=== PATIENT | male | born 1940 | race Caucasian/White ===

== ENCOUNTER 2018-11-24 09:54 | Inpatient (IN) ==
--- NOTE | 2018-11-06 22:05 | History and Physical Report ---
DATE OF ADMISSION: CHIEF COMPLAINT: Left knee pain and discomfort. HISTORY OF PRESENT ILLNESS: The patient is a 77-year-old gentleman who is well known to me from a previous right knee replacement done in 03/2005. He has done pretty well from this side. Over the years, he has developed increased pain and discomfort in his left knee. We have been putting 3 or 4 shots in his knee every year for the past several years. This became less successful over time. They helped him for about 3-4 weeks and that is about it. For the remaining 2 months, he is pretty painful. His pain is mostly medial, but some global pain. The more he walks, the more it hurts. He has nighttime pain. He would like to proceed with surgical treatment. PAST MEDICAL HISTORY: 1. Unspecified heart disease. 2. Hypertension. 3. Elevated cholesterol. 4. Low back pain/sciatica. 5. Mild obesity with BMI 32. PAST SURGICAL HISTORY: Includes right knee replacement done in 03/2005. ALLERGIES: None. CURRENT MEDICINES: 1. Lisinopril. 2. Baby aspirin. 3. Cymbalta. 4. Prilosec. 5. Pravastatin. 6. Losartan. 7. Metoprolol. SOCIAL HISTORY: This patient is a 77-year-old male. He is . He is from [place]. Does not smoke. FAMILY HISTORY: Noncontributory. REVIEW OF SYSTEMS: Negative for diabetes, neurologic problems, vascular problems or bleeding disorders. No history of deep venous thrombosis or pulmonary embolism. He does get nauseated with surgery. PHYSICAL EXAMINATION: GENERAL: Reveals a healthy, pleasant middle-aged male. Looks to be in pretty good health. HEENT: Benign. NECK: Supple. No lymphadenopathy. LUNGS: Clear to auscultation. HEART: Regular rate and rhythm. ABDOMEN: Soft, nontender and nondistended. EXTREMITIES: Grossly neurovascularly intact except as follows. Examination of the left knee reveals the patient ambulates with a bit of a limp. He has got varus alignment to his knee with a little bit of varus thrust. He has got bony hypertrophy medially. He is tender over the medial joint line. Range of motion is 10 degrees short of full extension and 125 degrees of flexion. No instability. No pain with hip motion. X-RAYS: X-rays of the left knee reviewed which showed advanced left knee DJD. He has got complete loss of his medial joint space. He has got tibial femoral subluxation. ASSESSMENT: This patient is a 77-year-old gentleman 14 years out from right knee replacement with advanced left knee degenerative joint disease. He has failed conservative treatment and would like to proceed with surgical treatment. PLAN: We are going to proceed with left knee replacement. The risks and benefits of left knee replacement were explained to the patient including but not limited to deep venous thrombosis, pulmonary embolism, , infection, neurological injury, vascular injury, bleeding problem, pain, limited range of motion, stiffness, failure to relieve symptoms, incomplete relief of symptoms, need for further surgery in the future, fracture, leg length inequality, nerve palsy, etc. The patient understands and desires to proceed. Informed consent was obtained. He did get a lot of nausea after his last surgery. We will likely discharge him with some Zofran. We will try and limit the narcotics and stick to Tylenol and tramadol for pain if possible. As far as discharge plans, he is planned to be discharged home using [facility] home health program. His can assist in his care.
--- NOTE | 2018-11-07 16:09 | PAT Medication Instructions ---
Medication Instructions Date of Service November 07, 2018 Home Medications aspirin [Aspir-81] 81 mg PO DAILY cholecalciferol (vitamin D3) 1,000 unit PO DAILY duloxetine 60 mg PO QPM loratadine 10 mg PO DAILY losartan 12.5 mg PO HS metoprolol succinate 12.5 mg PO HS metoprolol succinate 25 mg PO QAM omeprazole magnesium [Prilosec OTC] 20 mg PO QAM rosuvastatin [Crestor] 10 mg PO HS tamsulosin 0.4 mg PO QPM DO NOT take the morning of surgery cholecalciferol (vitamin D3) 1,000 unit PO DAILY loratadine 10 mg PO DAILY Take morning of surgery With a small sip of water, OTHERWISE NOTHING TO EAT OR DRINK AFTER MIDNIGHT: aspirin [Aspir-81] 81 mg PO QAM metoprolol succinate 25 mg PO QAM omeprazole magnesium [Prilosec OTC] 20 mg PO QAM Take evening before surgery duloxetine 60 mg PO QPM losartan 12.5 mg PO HS metoprolol succinate 12.5 mg PO HS rosuvastatin [Crestor] 10 mg PO HS tamsulosin 0.4 mg PO QPM Other Notes If you have any questions please call us at [phone] or [phone] or [phone] or [phone]
--- NOTE | 2018-11-08 12:00 | Anesthesiology Consultation ---
Date of Service November 08, 2018 Assessment & Plan (1) Encounter for pre-operative examination: Cardiac clearance 11/10/2018: Jarvis has a history of nonischemic cardiomyopathy which is improved on medical therapy. EF is now normal as per his echocardiogram last year. He describes an exercise capacity in the range of 4 metabolic equivalents are higher without any symptoms and therefore should be considered low risk for coronary ischemia for the upcoming surgery. His fairly recent catheterization showed only mild plaque. His EF has improved. I would recommend that he take his beta-waqas the morning of surgery and a postoperative EKG should be checked. Chart Review Chart Review: Acceptable Risk for Surgery and Patient seen in Pre Admission Testing Teaching & Discussion Instructed NPO after midnight before surgery, except medications with 15 cc of water. Medication instructions provided according to the PAT guidelines. History Surgery Operation Date: 11/24/18 10:40 Proposed Procedures p Left Total Knee Replacement - Dae Stevens MD Height/Weight Height: 6 ft 2 in Weight: 116.4 kg Allergies Allergy/AdvReac Type Severity Reaction Status Date / Time hydrocortisone Allergy Unknown CORTISONE Verified 11/01/18 10:41 INJ GAVE RED FACE;HIVES Medications Home Medications Medication Instructions Recorded Confirmed Last Taken aspirin [Aspir-81] 81 mg PO DAILY 11/01/18 11/01/18 Unknown cholecalciferol (vitamin D3) 1,000 unit PO DAILY 11/01/18 11/01/18 10/31/18 [Vitamin D3] duloxetine 60 mg PO QPM 11/01/18 11/01/18 10/31/18 loratadine 10 mg PO DAILY 11/01/18 11/01/18 Unknown losartan 12.5 mg PO HS 11/01/18 11/01/18 10/31/18 metoprolol succinate 12.5 mg PO HS 11/01/18 11/01/18 10/31/18 metoprolol succinate 25 mg PO QAM 11/01/18 11/01/18 11/01/18 omeprazole magnesium [Prilosec OTC] 20 mg PO QAM 11/01/18 11/01/18 11/01/18 rosuvastatin [Crestor] 10 mg PO HS 11/01/18 11/01/18 10/31/18 tamsulosin 0.4 mg PO QPM 11/01/18 11/01/18 10/31/18 Past Medical History Medical History Acid reflux Back problem Spinal stenosis? 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 Prediabetes A1C 6.3% 10/2018 Past Surgical History Surgical History History of cardiac cath 2014. Done for dyspnea and abnormal stress test. Showed minimal nonobstructive CAD, mild-mod LV dysfunction (EF 35-40%). History of colonoscopy History of hernia surgery History of tonsillectomy History of total right knee replacement Hx of rotator cuff surgery ? SIDE Status post debridement of bone spur BOTH HEELS 25 YRS AGO Past Anesthesia History No Family Hx of Anesthesia Complications and Other Pt reports delirium post op with hernia repair 2 years ago. Otherwise no issues known. History of PONV No Motion Sickness Screening History of Motion Sickness: Yes Social History Smoking Status: Never smoker Do You Dip or Chew Tobacco: No Hx Alcohol Use: No Hx Substance Use: No substance use type: does not use Exercise / Class Metabolic Activity III < 4 Walking/Shop/Light housework (Denies any CP, some mild SOB with stairs possible but avoids stairs 2/2 knee pain. Works as a ivy.) Review of Systems Pt denies any recent chest pain, shortness of breath, palpitations, cough, fever or URI. Physical Exam Vital Signs BP: 119/80 P: 70bpm SPO2: 95% RA T: 98.3 R: 16 ENMT Mouth: + dentures and + edentulous Thyromental Distance: < 3.5 Finger Breadths (3) Mallampati Class: II Neck normal visual inspection and + limited neck extension Respiratory normal respiratory effort Auscultation: lungs clear to auscultation bilaterally Cardiovascular Rate/Rhythm: regular rate and regular rhythm Heart Sounds: no murmur Vessels: no carotid bruit Extremities: no edema Testing Electrocardiogram Date: 11/08/18 Findings: + NSR @ (65) Nonspecific ST abnormality. Echocardiogram Date: 03/18/17 EF: 55% Mild concentric LVH. Left ventricular systolic function is normal. Right ventricular systolic pressure is measured at 33 mmHg. Mild aortic root dilation of 3.8 cm. Grade 1 diastolic dysfunction. Laboratory Results 11/08/18 12:30 11/08/18 12:30 Blood Type A Positive 11/08/18 12:30 Antibody Screen NEGATIVE 11/08/18 12:30 PT 10.5 Seconds (9.0-12.0) 11/08/18 12:30 INR 1.0 (0.9-1.1) 11/08/18 12:30 APTT 28.0 Seconds (21.0-31.0) 11/08/18 12:30 A1C 10/31/18: 6.3%
[2018-11-08 13:11] LABS: Basophils # (auto) 0.04 K/uL (0-0.2); Basophils % (auto) 0.7 %; Eosinophils # (auto) 0.16 K/uL (0-0.5); Eosinophils % (auto) 2.8 %; Hematocrit (blood only) 44.8 % (42-52); Hemoglobin 15.4 g/dL (14.0-18.0); Immature Granulocytes # (auto) 0.02 K/uL (0.00-0.02); Immature Granulocytes % (auto) 0.4 %; Lymphocytes # (auto) 2.07 K/uL (1.2-3.4); Lymphocytes % (auto) 36.4 %; Mean Corpuscular Hgb Conc 34.4 g/dL (32-36); Mean Corpuscular Volume 89.8 fL (80-100); Mean Platelet Volume 9.5 fL (7.4-10.4); Monocytes # (auto) 0.59 K/uL (0.11-0.59); Monocytes % (auto) 10.4 %; Neutrophils # (auto) 2.81 K/uL (1.4-6.5); Neutrophils % (auto) 49.3 %; Platelet Count 209 K/uL (130-400); RDW Coefficient of Variation 13.5 % (11.5-14.5); RDW Standard Deviation 44.3 fL (36.4-46.3); Red Blood Count 4.99 M/uL (4.7-6.1); White Blood Count 5.69 K/uL (4.8-10.8)
[2018-11-08 13:24] LABS: Prothrombin Time 10.5 Seconds (9.0-12.0)
[2018-11-08 14:33] LABS: BUN Creatinine Ratio 16.6 (10-20); Blood Urea Nitrogen 18 mg/dl (7-18); C Reactive Protein < 0.29 mg/dl (0-0.29); Calcium 9.2 mg/dl (8.5-10.1); Carbon Dioxide 25 mmol/L (21-32); Chloride 107 mmol/L (98-107); Creatinine Clr Calc Pharmacy 80.9 ml/min; Est GFR (African American) 78.3; Est GFR (Non-African American) 67.5; Glucose 75 mg/dl (70-99); Potassium 4.2 mmol/L (3.5-5.1); Sodium 139 mmol/L (136-145)
[~2018-11-24 09:54] MED LIST: ACETAMINOPHEN 500 MG TAB PO SCH; BUPIVACAINE 0.5 % 5 MG/1 ML PF 10ML VIAL ONE; BUPIVACAINE LIPOSOME/PF 266 MG, BUPIVACAINE/EPINEPHRINE 50 ML, SODIUM CHLORIDE 0.9% 30 ... INFIL SCH; CEFAZOLIN 2000MG 2,000 MG/15 ML SYR IV SCH; EPINEPHrine INJ 1 MG/ML AMP ONE; FAMOTIDINE 20 MG TAB PO SCH; GABAPENTIN 300 MG PO SCH; LR 15ML/HR IV SCH; METOCLOPRAMIDE HCL 10 MG TABLET PO SCH; ROPIVACAINE 0.5% 5 MG/ML 30 ML VIAL ONE; TRANEXAMIC ACID 1,000 MG **IV Intra-op IV SCH
--- NOTE | 2018-11-24 10:39 | History & Physical Bridge Note ---
Date of Service November 24, 2018 History & Physical Bridge Note I have examined the patient, reviewed the History & Physical and in the interval since the performance of the History & Physical I have noted the following changes of clinical significance: no changes noted
[2018-11-24] MEDS: LR 500ML BOLUS, THEN 15ML/HR IV SCH (11:05)
[2018-11-24] MEDS ORDERED: MIDAZOLAM HCL 1 MG/ML 2ML VIAL ONE (12:01)
[2018-11-24] MEDS ORDERED: fentaNYL citrate 100 MCG/2 ML VIAL ONE (12:01)
[2018-11-24] MEDS ORDERED: PROPOFOL IV EMULSION 10 MG/ML 20 ML VIAL IV ONE ×2 (12:04→14:10)
[2018-11-24] MEDS ORDERED: ATROPINE SULFATE 0.1 MG/ML 10ML SYR IV PRN (12:15)
[2018-11-24] MEDS ORDERED: LABETALOL HCL IV 5 MG/ML 20ML IV PRN (12:15)
[2018-11-24] MEDS ORDERED: ePHEDrine sulfate 50 MG/ML AMP IV PRN (12:15)
[2018-11-24] MEDS ORDERED: fentaNYL citrate 100 MCG/2 ML VIAL IV PRN (12:15)
[2018-11-24] MEDS ORDERED: HYDROmorphone INJ 1 MG/ML SYRINGE IV PRN (12:15)
[2018-11-24] MEDS ORDERED: ONDANSETRON INJ 2 MG/ML 2 ML VIAL IV PRN ×2 (12:15→16:14)
[2018-11-24] MEDS ORDERED: PHENYLEPHRINE 100MCG/ML 5ML SYR IV PRN (12:15)
[2018-11-24] MEDS ORDERED: MEPERIDINE HCL 25 MG/ML CARP IV PRN (12:15)
[2018-11-24] MEDS ORDERED: BUPIVACAINE 0.25% 30 ML VIAL ONE (12:28)
[2018-11-24] MEDS ORDERED: BUPIVACAINE LIPOSOME 1.3% 266 MG/20 ML VIAL ONE (12:29)
[2018-11-24] MEDS ORDERED: BACITRACIN INJ 50,000 UNIT VIAL ONE (12:29)
[2018-11-24] MEDS ORDERED: SODIUM CHLORIDE 0.9% PF 50 ML VIAL ONE (12:29)
[2018-11-24] MEDS ORDERED: EpINEphrine HCL INJ 1 MG/ML 1ML SYRINGE ONE (12:30)
--- NOTE | 2018-11-24 14:35 | Post Operative Brief Note ---
Immediate Post Op Note v1 Date of Surgery November 24, 2018 Pre & Post Diagnosis Operation Date: 11/24/18 12:30 Pre-Op Diagnosis: Advanced Left knee Degenerative Joint Disease Post-Op Diagnosis: Advanced Left knee Degenerative Joint Disease Procedure Operation Date: 11/24/18 12:30 <No data on this case meets the specified criteria> Surgeon Dae Stevens MD Human Resources Intern Misti, PAC Estimated Blood Loss 50 Findings Consistent with Post-Op Diagnosis Fluids 1700 cc Specimens Left Knee Drains Dixon Catheter Anesthesia Type Spinal Complications none Disposition Accompanied Patient To Recovery: No Disposition: Recovery Room
--- NOTE | 2018-11-24 15:27 | XRay Report ---
XR knee LT 2V routine CLINICAL HISTORY: 77 years-old Male presenting with Surgical Post Op. TECHNIQUE: Frontal and crosstable lateral views of the left knee were obtained. COMPARISON: 11/05/2018. FINDINGS: Postsurgical changes of total left knee arthroplasty with patellar resurfacing. Expected intra-articu lar and soft tissue emphysema. No malalignment. No para prosthetic fracture. Overlying skin jn n oted. Suspected underlying osteopenia. IMPRESSION: Expected postsurgical appearance status post total left knee arthroplasty with patellar resurfacing. Electronically signed by: Kimani Lema M.D. 11/24/2018 3:26 PM
--- NOTE | 2018-11-24 15:30 | Anesthesiology Progress Note ---
Date of Service November 24, 2018 Anesthesia Post Procedure Vital Signs Vital Signs: Temp Pulse Pulse Resp BP Pulse Ox 11/24/18 15:20 36.5 C 83 13 119/66 98 11/24/18 15:10 82 12 107/65 99 11/24/18 15:00 80 11 L 108/65 100 11/24/18 14:50 80 13 101/67 100 11/24/18 14:41 36.5 C 83 20 91/61 L 98 11/24/18 10:39 36.6 C 66 18 136/91 95 Pain Intensity Left Knee: Pain Intensity: 0 Notes Mental Status: alert / awake / arousable Patient Amnestic to Procedure: Yes Nausea / Vomiting: adequately controlled Pain: adequately controlled Airway Patency, RR, SpO2: stable & adequate BP & HR: stable & adequate Neuraxial Anesthesia: was administered and sensory block is resolving Anesthetic Complications: no major complications apparent
[2018-11-24] MEDS ORDERED: TAMSULOSIN HCL 0.4 MG CAP PO PRN (16:14)
[2018-11-24] MEDS ORDERED: METOCLOPRAMIDE HCL INJ 5 MG/ML 2 ML VIAL IV PRN (16:14)
[2018-11-24] MEDS ORDERED: MAGNESIUM HYDROXIDE SUSP 30 ML UDC PO PRN (16:14)
[2018-11-24] MEDS ORDERED: HYDROmorphone INJ 0.5 MG/0.5 ML SYR IV PRN (16:14)
[2018-11-24] MEDS ORDERED: ALUMINUM/MAGNESIUM SUSP 30 ML UDC PO PRN (16:14)
[2018-11-24] MEDS ORDERED: NALOXONE HCL 0.4 MG/1 ML VIAL/CARP IV PRN (16:14)
[2018-11-24] MEDS ORDERED: BISACODYL 10 MG SUPP PR PRN (16:14)
[2018-11-24] MEDS: OXYCODONE HCL IR 5 MG TAB (IMMEDIATE RELEASE) PO PRN (17:54)
[2018-11-24] MEDS: KETOROLAC TROMETHAMINE 15 MG/ML VIAL IV SCH ×2 (18:51→23:51)
[2018-11-24] MEDS: FERROUS GLUCONATE 324 MG TAB PO SCH (18:51)
[2018-11-24] MEDS: ASCORBIC ACID 500 MG TAB PO SCH (18:51)
[2018-11-24] MEDS: SODIUM CHLORIDE 0.9% 1000ML 1,000 ML IV SCH (18:52)
[2018-11-24] MEDS ORDERED: TRANEXAMIC ACID 1,000 MG in 0.9 % SODIUM CHLORIDE 100 ML IV SCH (21:00)
[2018-11-24] MEDS: CEFAZOLIN 2000MG 2,000 MG/15 ML SYR IV SCH (21:02)
[2018-11-24] MEDS: SENNA 8.6 MG TAB PO SCH (21:14)
[2018-11-24] MEDS: DOCUSATE SODIUM 100 MG CAP PO SCH (21:14)
[2018-11-24] MEDS: TAPENTADOL HCL ER 50 MG TABCR PO SCH (21:15)
[2018-11-24] MEDS: ASPIRIN 81 MG ECTAB PO SCH (21:15)
[2018-11-24] MEDS: ROSUVASTATIN CALCIUM 10 MG TAB PO SCH (21:15)
[2018-11-24] MEDS: DULOXETINE HCL 60 MG CAP PO SCH (21:15)
[2018-11-24] MEDS: ACETAMINOPHEN 500 MG TAB PO SCH (21:15)
[2018-11-24] MEDS: LOSARTAN POTASSIUM 25 MG TAB PO SCH (21:15)
[2018-11-24] MEDS: TAMSULOSIN HCL 0.4 MG CAP PO SCH (21:15)
[2018-11-24] MEDS: METOPROLOL SUCC 25MG EXT REL TAB PO SCH (21:16)
[2018-11-25] MEDS: SODIUM CHLORIDE 0.9% 1000ML 1,000 ML IV SCH (01:52)
--- NOTE | 2018-11-25 02:43 | Operative Report ---
DATE OF OPERATION: 11/24/2018 SURGEON: Dae Stevens MD BOX FEEDER: LA Malagon PREOPERATIVE DIAGNOSIS: Left knee degenerative joint disease. POSTOPERATIVE DIAGNOSIS: Left knee degenerative joint disease. PROCEDURE PERFORMED: Left cemented posterior stabilized total knee arthroplasty. COMPLICATIONS: None. ESTIMATED BLOOD LOSS: 50 mL. FLUID REPLACEMENT: 1700 mL crystalloid fluid replacement. TOURNIQUET TIME: 62 minutes at 300 mmHg. ANESTHESIA: Spinal with adductor canal block. DRAINS: None. SPECIMENS: Left knee sent for pathology. OPERATIVE INDICATIONS: The patient is a 77-year-old gentleman who has had a long history of right knee arthritis. He underwent a right knee replacement 14 years ago and has done well from this. I have been treating him for the past 10 years for the left knee arthritis. We treated him with intermittent injections which just became less successful over the past year. X-rays show advanced DJD. He elected to proceed with surgical treatment. OPERATIVE FINDINGS: Operative findings were advanced left knee DJD. He had extensive grade 4 changes in the medial femoral condyle and medial tibial plateau as well as the pretty extensive patellofemoral disease. The lateral compartment showed grade 3 changes. He had a varus deformity to his knee with moderate size joint effusion. OPERATIVE IMPLANTS: Operative implants consisted of: 1. Biomet Vanguard size 67.5 left posterior stabilized femoral component. 2. Biomet size 79 tibial tray. 3. A 12 mm posterior stabilized polyethylene insert. 4. A 34 x 8.5 all poly patella. OPERATIVE PROCEDURE: The patient was taken to the operating room, identified and placed on the operating table in supine position. All contact areas were appropriately padded. IV antibiotics were provided by anesthesia team. A spinal anesthetic and adductor canal block had been provided in the holding area. Dixon catheter was placed in sterile fashion. Left thigh tourniquet was then placed and left lower extremity was then prepped and draped in usual sterile fashion. Left leg was elevated and exsanguinated with Esmarch and tourniquet was placed at 300 mmHg. An anterior approach to the left knee was then performed through a longitudinal incision centered over the patella. Sharp dissection was carried through the subcutaneous tissues down to the level of the extensor mechanism. A medial parapatellar arthrotomy incision was made. Some subperiosteal dissection was carried out medially. The fat pad was resected from beneath the patellar tendon. The lateral patellofemoral ligament was released. The patella was everted and knee was flexed. The osteophytes were taken off the distal femur. The ACL and PCL were then released and the distal femur and the tibia subluxated anteriorly. The external tibial alignment jig was then placed in the anterior face of the tibia and adjusted 16 mm medially. Proximal tibial cut was made to remove about a millimeter or 2 of bone from most deficient aspect of the medial tibial plateau. Some osteophytes were taken off medial and posteromedially. Tibia was sized to a size 79. Attention was then drawn to the femur. The distal femur was entered with a sharp drill bit. Intramedullary canal was suctioned. A left 6-degree valgus cutting guide was placed. Distal femoral cutting block was pinned in place. Distal femoral cut was made to take an additional 3 mm of bone off the distal femur. The femur was then sized to a size 67.5. We did downsize this slightly. The AP cutting block was pinned parallel to the epicondylar axis, which was 4 degrees of external rotation. The anterior cut, anterior chamfer, posterior cut, posterior chamfer cuts were made. Box cutting guide was placed and adjusted slightly lateral and the box cut was made. The knee was flexed. The remnants of the medial and lateral menisci were excised. The osteophytes were taken off the posterior aspect of the femur. A trial femoral component was placed. The tibial tray was pinned in maximum external rotation and the drill and stem punch were used to create defect in proximal tibia for the tibial tray. The knee was then trialed and the 12 mm insert fit most appropriately. Attention was then drawn to the patella. The patella was cleaned of all soft tissues. Patella thickness measured 24 mm in thickness, it was cut down to 14. It was sized to a size 34 patella. Lug holes were drilled for 34 patella. The lateral osteophyte was removed. Patella button was placed. Knee was taken through range of motion and the patella tracked nicely with no thumbs test. Attention was then drawn toward placement of permanent components. All trial components were removed. Bone plug was placed in the distal femur to limit blood loss. A double batch of Palacos G cement was mixed. A Biomet Vanguard size 67.5 left posterior stabilized femoral component, Biomet size 79 tibial tray, a 12 mm posterior stabilized polyethylene insert, and a 34 x 8.5 all poly patella then cemented in place. Knee was brought out into full extension until cement hardened. A final cement check was then performed. Pericapsular tissues were injected with a total of 100 mL of combination of 20 mL of Exparel, 30 mL of normal saline, 30 mL of 0.25% Marcaine with epinephrine. The patient did receive 1 gram of tranexamic acid. The tourniquet was then let down for final tourniquet time of 62 minutes. Hemostasis was assured using electrocautery. The extensor mechanism was then closed with a combination of #1 PDS suture and #1 Vicryl suture in a [id number] fashion. The extensor mechanism was checked and found to be intact. The subcutaneous tissues were then closed with 2-0 Dexon suture in a buried interrupted fashion. Skin was closed with skin jn. Leg was then cleaned and dried and a sterile dressing of Xeroform, 4 x 4s, sterile cast padding and Jayden bandage were applied. The patient then transferred to the recovery room in stable condition. The patient tolerated the procedure well with no complications. All needle and sponge counts were correct at the end of the operation. I attest to the content of the Intraoperative Record and any orders documented therein. Any exception s are noted below.
[2018-11-25] MEDS: ACETAMINOPHEN 500 MG TAB PO SCH ×3 (05:17→21:04)
[2018-11-25] MEDS: KETOROLAC TROMETHAMINE 15 MG/ML VIAL IV SCH ×4 (05:18→23:44)
[2018-11-25] MEDS: CEFAZOLIN 2000MG 2,000 MG/15 ML SYR IV SCH (05:19)
[2018-11-25] MEDS: LR 500ML BOLUS, THEN 15ML/HR IV SCH (05:20)
[2018-11-25 06:19] LABS: Hematocrit (blood only) 37.8 % (42-52); Hemoglobin 12.9 g/dL (14.0-18.0); Mean Corpuscular Hgb Conc 34.1 g/dL (32-36); Mean Corpuscular Volume 90.4 fL (80-100); Platelet Count 174 K/uL (130-400); RDW Coefficient of Variation 13.6 % (11.5-14.5); Red Blood Count 4.18 M/uL (4.7-6.1); White Blood Count 6.33 K/uL (4.8-10.8)
[2018-11-25 06:54] LABS: BUN Creatinine Ratio 15.1 (10-20); Calcium 7.6 mg/dl (8.5-10.1); Creatinine Clr Calc Pharmacy 71.5 ml/min; Est GFR (African American) 69.5; Potassium 3.9 mmol/L (3.5-5.1)
--- NOTE | 2018-11-25 08:26 | Progress Note ---
DATE: 11/25/2018 SUBJECTIVE: A 77-year-old gentleman postop day 1 from left knee replacement. He is doing well. Had a pretty good night. Pain is controlled. No chest pain or shortness of breath. Not feeling dizzy or lightheaded. OBJECTIVE: VITAL SIGNS: Temperature 37.0. Vital signs stable. PHYSICAL EXAMINATION: GENERAL: Reveals a pleasant, middle-aged male. I had to wake him this morning. LUNGS: Clear to auscultation. HEART: Has a regular rate and rhythm. ABDOMEN: Soft, nontender, nondistended. EXTREMITIES: Exam is grossly neurovascularly intact except as follows: Examination of the left lower extremity reveals the leg to be well aligned. Dressing is clean, dry, and intact. He can dorsiflex and plantarflex his foot appropriately. He has got brisk refill, good distal pulse. LABORATORIES: Hemoglobin 12.9, hematocrit 37.8. Electrolytes are stable. ASSESSMENT: A 77-year-old gentleman postoperative day 1 from left knee replacement, doing pretty well. Pain is controlled. He is neurologically intact. PLAN: 1. DVT prophylaxis including thigh-high TEDs, SCDs, and aspirin twice a day. 2. PT/OT. Weight bear as tolerated. Left total knee protocol. 3. Pain control, doing pretty well with current pain regimen. 4. Disposition: He is planning to be discharged to home with some home health once adequately recovered.
[2018-11-25] MEDS: LORATADINE 10 MG TAB PO SCH (09:28)
[2018-11-25] MEDS: PANTOprazole 40 MG TAB PO SCH (09:28)
[2018-11-25] MEDS: METOPROLOL SUCC 25MG EXT REL TAB PO SCH ×2 (09:28→21:06)
[2018-11-25] MEDS: DOCUSATE SODIUM 100 MG CAP PO SCH ×2 (09:28→21:04)
[2018-11-25] MEDS: MULTIVITAMIN TAB PO SCH (09:28)
[2018-11-25] MEDS: OXYCODONE HCL IR 5 MG TAB (IMMEDIATE RELEASE) PO PRN (09:29)
[2018-11-25] MEDS: ASCORBIC ACID 500 MG TAB PO SCH ×2 (09:29→17:48)
[2018-11-25] MEDS: FERROUS GLUCONATE 324 MG TAB PO SCH ×2 (09:29→17:48)
[2018-11-25] MEDS: ASPIRIN 81 MG ECTAB PO SCH ×2 (09:29→21:04)
--- NOTE | 2018-11-25 11:03 | Anesthesiology Progress Note ---
Date of Service November 25, 2018 Anesthesia Post Procedure Vital Signs Vital Signs: Temp Pulse Pulse Pulse Resp BP BP 11/25/18 09:20 66 85/56 L 11/25/18 09:15 69 101/68 11/25/18 09:14 62 104/63 11/25/18 08:30 65 77/42 L 11/25/18 08:00 36.7 C 63 16 118/72 11/25/18 04:05 37 C 68 18 109/67 11/24/18 23:15 37.1 C 75 18 106/68 11/24/18 20:58 59 L 113/68 11/24/18 19:12 36.5 C 70 20 120/73 11/24/18 17:44 36.6 C 69 20 116/74 11/24/18 17:02 36.8 C 80 20 143/81 H 11/24/18 16:30 36.8 C 78 20 115/75 11/24/18 15:45 85 11 L 100/66 11/24/18 15:30 85 12 105/64 11/24/18 15:20 36.5 C 83 13 119/66 11/24/18 15:10 82 12 107/65 11/24/18 15:00 80 11 L 108/65 11/24/18 14:50 80 13 101/67 11/24/18 14:41 36.5 C 83 20 91/61 L Pulse Ox 11/25/18 09:20 11/25/18 09:15 11/25/18 09:14 11/25/18 08:30 94 11/25/18 08:00 94 11/25/18 04:05 94 11/24/18 23:15 98 11/24/18 20:58 11/24/18 19:12 96 11/24/18 17:44 99 11/24/18 17:02 99 11/24/18 16:30 98 11/24/18 15:45 97 11/24/18 15:30 100 11/24/18 15:20 98 11/24/18 15:10 99 11/24/18 15:00 100 11/24/18 14:50 100 11/24/18 14:41 98 Pain Intensity Left Knee: Pain Intensity: 1 Notes Mental Status: alert / awake / arousable Nausea / Vomiting: adequately controlled Pain: adequately controlled Airway Patency, RR, SpO2: stable & adequate BP & HR: stable & adequate Hydration State: stable & adequate Neuraxial Anesthesia: was administered and sensory block resolved Anesthetic Complications: no major complications apparent and Pt Satisfied with anesthetic care
[2018-11-25] MEDS: CHOLECALCIFEROL 1,000 UNITS TAB PO SCH (11:13)
[2018-11-25] MEDS: TAPENTADOL HCL ER 50 MG TABCR PO SCH ×2 (11:13→21:08)
[2018-11-25] MEDS: LOSARTAN POTASSIUM 25 MG TAB PO SCH (21:03)
[2018-11-25] MEDS: TAMSULOSIN HCL 0.4 MG CAP PO SCH (21:03)
[2018-11-25] MEDS: ROSUVASTATIN CALCIUM 10 MG TAB PO SCH (21:04)
[2018-11-25] MEDS: SENNA 8.6 MG TAB PO SCH (21:04)
[2018-11-25] MEDS: DULOXETINE HCL 60 MG CAP PO SCH (21:04)
[2018-11-26] MEDS: KETOROLAC TROMETHAMINE 15 MG/ML VIAL IV SCH ×2 (05:12→11:39)
[2018-11-26] MEDS: ACETAMINOPHEN 500 MG TAB PO SCH (05:12)
[2018-11-26] MEDS: LR 500ML BOLUS, THEN 15ML/HR IV SCH (05:13)
--- NOTE | 2018-11-26 08:50 | Progress Note ---
DATE: 11/26/2018 SUBJECTIVE: A 77-year-old gentleman postop day 2 from a left knee replacement. He is doing pretty well. He is initially hypotensive yesterday with getting up, but this all resolved. He is doing well. Pain is controlled. No chest pain or shortness of breath. Not feeling dizzy or lightheaded. He is getting around safely. OBJECTIVE: VITAL SIGNS: Temperature 37.1. Vital signs stable. GENERAL: Physical examination reveals a pleasant, elderly male. He is lying in bed, looks pretty comfortable. Just returning from the bathroom. EXTREMITIES: Examination of the left leg reveals the leg to be well aligned. Dressing is clean, dry and intact. Calf is soft and supple. He is neurologically intact. ASSESSMENT: A 77-year-old gentleman postop day 2 from left knee replacement, doing well. His pain controlled. Hypotension is resolved. PLAN: 1. DVT prophylaxis including thigh-high TEDs, SCDs, and aspirin twice a day. 2. PT/OT. Weight bear as tolerated. Left total knee protocol. 3. Pain control, doing well with current pain regimen. 4. Disposition: Plan to discharge to home with some home health later today.
[2018-11-26] MEDS: FERROUS GLUCONATE 324 MG TAB PO SCH (09:18)
[2018-11-26] MEDS: DOCUSATE SODIUM 100 MG CAP PO SCH (09:18)
[2018-11-26] MEDS: ASPIRIN 81 MG ECTAB PO SCH (09:18)
[2018-11-26] MEDS: ASCORBIC ACID 500 MG TAB PO SCH (09:18)
[2018-11-26] MEDS: METOPROLOL SUCC 25MG EXT REL TAB PO SCH (09:18)
[2018-11-26] MEDS: PANTOprazole 40 MG TAB PO SCH (09:19)
[2018-11-26] MEDS: MULTIVITAMIN TAB PO SCH (09:19)
[2018-11-26] MEDS: CHOLECALCIFEROL 1,000 UNITS TAB PO SCH (09:19)
[2018-11-26] MEDS: LORATADINE 10 MG TAB PO SCH (09:19)
[2018-11-26] MEDS: TAPENTADOL HCL ER 50 MG TABCR PO SCH (09:21)
[2018-11-26] MEDS: OXYCODONE HCL IR 5 MG TAB (IMMEDIATE RELEASE) PO PRN (11:39)
--- NOTE | 2018-11-27 12:11 | Discharge Summary ---
Date of Service November 29, 2018 Discharge Data Consultations 11/24/18 16:14 Consult Case Management - Discharge Planning Routine Procedures Performed Operation Date: 11/24/18 12:30 Actual Procedures p Left Total Knee Replacement - Dae Stevens MD
--- NOTE | 2018-11-28 16:05 | Discharge Summary ---
ADMITTING PHYSICIAN AND SURGEON: Dr. Dae Stevens. ADMITTING DIAGNOSIS: Left knee degenerative joint disease. SURGERY PERFORMED: Left total knee arthroplasty. SECONDARY DIAGNOSES: Unspecified heart disease, hypertension, elevated cholesterol, low back pain, sciatica, mild obesity. CONSULTS: None obtained. HISTORY AND PHYSICAL EXAMINATION: Well documented in the patient's chart. HOSPITAL COURSE: The patient was admitted on 11/24/2018 underwent total knee arthroplasty, tolerated the procedure well. There were no complications. He was transferred to the PACU postoperatively and later to the orthopedic floor for further care. He is given Ancef for antibiotic prophylaxis, LEVON stockings, SCDs and aspirin for DVT prophylaxis. Hemoglobin, hematocrit and vital signs were monitored during his hospital stay and remained stable, did not require blood transfusions. There were no complications. By postoperative day 2, he was tolerating a regular diet, pain was controlled with oral pain medicine. He was participating in physical therapy. On postop day 2 he was discharged home, set up with home health services, given printed discharge instructions including new prescriptions for extra strength Tylenol, aspirin, and oxycodone. Continue his home medications, continue physical therapy, weightbearing as tolerated, LEVON stockings. Follow up approximately 2 weeks postoperatively or sooner if there are any problems or concerns.
== END 2018-11-26 12:40 | disposition home health service (06) | DRG 470 ==
LOC: ASU 09:54 → 3E 14:41

== ENCOUNTER 2025-07-26 11:13 | Observation (INO) ==
--- NOTE | 2025-06-26 11:21 | PAT Medication Instructions ---
Medication Instructions Date of Service June 26, 2025 Home Medications apixaban 5 mg tablet (Eliquis) 5 mg PO BID ascorbic acid (vitamin C) 1,000 mg capsule 1,000 mg PO PM cholecalciferol (vitamin D3) 125 mcg (5,000 unit) capsule 125 mcg PO PM coQ10 (ubiquinol) 100 mg capsule (Qunol Gurjit CoQ10) 100 mg PO PM cyclobenzaprine 10 mg tablet 10 mg PO TID dofetilide 250 mcg capsule 250 mcg PO BID ezetimibe 10 mg tablet 10 mg PO PM finasteride 5 mg tablet 5 mg PO QAM gabapentin 300 mg capsule 300 mg PO QAM glimepiride 2 mg tablet 2 mg PO QAM magnesium glycinate 200 mg PO HS metoprolol succinate 25 mg tablet,extended release 24 hr 25 mg PO QAM mupirocin 2 % topical ointment 1 applic topical BID rosuvastatin 10 mg tablet 10 mg PO .tuesday and semaglutide 2 mg/dose (8 mg/3 mL) subcutaneous pen injector (Ozempic) 2 mg subcut .weekly tamsulosin 0.4 mg capsule 0.4 mg PO HS zinc gluconate 50 mg tablet 50 mg PO QAM Cbd Gummies 1 dose PO DAILY PRN Pain gabapentin 300 mg capsule 600 mg PO HS valerian-passion lagpy-[place]au[place]-pwzsas-hops-orange 65 mg-65 mg-65 mg tab (Relax and Sleep) 1 tab PO HS Continue as directed rosuvastatin 10 mg tablet 10 mg PO .tuesday and ASK your prescriber and surgeon apixaban 5 mg tablet (Eliquis) 5 mg PO BID STOP taking 2 weeks before surgery coQ10 (ubiquinol) 100 mg capsule (Qunol Gurjit CoQ10) 100 mg PO PM valerian-passion qoipa-ifhyll-wrcrjm-hops-orange 65 mg-65 mg-65 mg tab (Relax and Sleep) 1 tab PO HS STOP taking at least 7 days before surgery semaglutide 2 mg/dose (8 mg/3 mL) subcutaneous pen injector (Ozempic) 2 mg subcut .weekly STOP taking 24 hours before surgery mupirocin 2 % topical ointment 1 applic topical BID DO NOT take the morning of surgery glimepiride 2 mg tablet 2 mg PO QAM zinc gluconate 50 mg tablet 50 mg PO QAM Cbd Gummies 1 dose PO DAILY PRN Pain Take morning of surgery With a small sip of water, OTHERWISE NOTHING TO EAT OR DRINK AFTER MIDNIGHT: cyclobenzaprine 10 mg tablet 10 mg PO TID dofetilide 250 mcg capsule 250 mcg PO BID finasteride 5 mg tablet 5 mg PO QAM gabapentin 300 mg capsule 300 mg PO QAM metoprolol succinate 25 mg tablet,extended release 24 hr 25 mg PO QAM Take evening before surgery ascorbic acid (vitamin C) 1,000 mg capsule 1,000 mg PO PM cholecalciferol (vitamin D3) 125 mcg (5,000 unit) capsule 125 mcg PO PM cyclobenzaprine 10 mg tablet 10 mg PO TID ezetimibe 10 mg tablet 10 mg PO PM magnesium glycinate 200 mg PO HS tamsulosin 0.4 mg capsule 0.4 mg PO HS Cbd Gummies 1 dose PO DAILY PRN Pain (if needed) gabapentin 300 mg capsule 600 mg PO HS dofetilide 250 mcg capsule 250 mcg PO BID Other Notes If you have any questions please call us at [phone] or [phone] or [phone] or [phone]
--- NOTE | 2025-07-02 10:30 | Anesthesiology Consultation ---
Date of Service July 02, 2025 Assessment & Plan (1) Encounter for pre-operative examination: Chart Review Chart Review: Acceptable Risk for Surgery (pending surgeon ordered ECHO and response from cardio regarding optimization to surgery/preop EKG bifascicular block ) and Patient seen in Pre Admission Testing - Please send optimization note re: bifascicular block on preop EKG as well as preop EKG/CXR and labs (per patient request) to patient's block splitter operator office (Dr Barrett Bassett - [facility]) (phone number [phone]; fax number [phone]) - Please obtain ECHO being done 07/04/25 through block splitter operator office - Check BSG AM DOS - Patient informed to stop Ozempic 7 days prior to surgery. Last dose of Ozempic scheduled 07/13/25. Will be off Ozempic x 13 days prior to DOS on 07/26/25 Patient is NOT an OPJ candidate (discussed with Dr. Huston)- did inform patient and surgeon's office he will need to be a 23 hour obs - patient voices understanding Per PAT appt on 07/02/25, no recent illness/disease exposures, illness related symptoms, or recent illness/disease positive tests. Will leave to surgeon's discretion if preop Covid testing needed Cardiology visit 01/23/25= "... paroxysmal atrial fibrillation... better controlled with dofetilide with no recent breakthrough episodes... history of nonischemic cardiomyopathy which has improved on medical therapy... ascending aorta measuring 4.2cm... blood pressure is well controlled... lipids are suboptimal with an LDL of 75... Given his diabetes and coronary plaque his goal is an LDL at least less than 70... no interest injectable agents... accept where he is at this point... tolerating anticoagulation without difficulty... mild pulm HTN on ECHO from time to time likely secondary to his sleep apnea. His pulmonary pressures actually appeared improved on ECHO in 2022 but could not be measured in 2023... mild to moderate mitral regurgitation.. History Surgery Operation Date: 07/26/25 09:00 Proposed Procedures p Left Reverse Total Shoulder Arthroplasty - Madi Carvalho DO Height/Weight Height: 6 ft 2 in Weight: 122.7 kg Allergies Allergy/AdvReac Type Severity Reaction Status Date / Time latex Allergy Intermediate rash/sore Verified 06/24/25 13:38 at site Medications Home Medications Medication Instructions Recorded Confirmed Last Taken apixaban 5 mg tablet (Eliquis) 5 mg PO BID 05/21/25 06/24/25 Unknown ascorbic acid (vitamin C) 1,000 mg 1,000 mg PO PM 05/21/25 06/24/25 Unknown capsule cholecalciferol (vitamin D3) 125 125 mcg PO PM 05/21/25 06/24/25 Unknown mcg (5,000 unit) capsule coQ10 (ubiquinol) 100 mg capsule 100 mg PO PM 05/21/25 06/24/25 Unknown (Qunol Gurjit CoQ10) dofetilide 250 mcg capsule 250 mcg PO BID 05/21/25 06/24/25 Unknown ezetimibe 10 mg tablet 10 mg PO PM 05/21/25 06/24/25 Unknown finasteride 5 mg tablet 5 mg PO QAM 05/21/25 06/24/25 Unknown gabapentin 300 mg capsule 300 mg PO QAM 05/21/25 06/24/25 Unknown glimepiride 2 mg tablet 2 mg PO QAM 05/21/25 06/24/25 Unknown magnesium glycinate 200 mg PO HS 05/21/25 06/24/25 Unknown metoprolol succinate 25 mg 25 mg PO QAM 05/21/25 06/24/25 Unknown tablet,extended release 24 hr mupirocin 2 % topical ointment 1 applic topical BID 05/21/25 06/24/25 Unknown rosuvastatin 10 mg tablet 10 mg PO .tuesday and 05/21/25 06/24/25 Unknown semaglutide 2 mg/dose (8 mg/3 mL) 2 mg subcut .weekly 05/21/25 06/24/25 Unknown subcutaneous pen injector (Ozempic) tamsulosin 0.4 mg capsule 0.4 mg PO HS 05/21/25 06/24/25 Unknown zinc gluconate 50 mg tablet 50 mg PO QAM 05/21/25 06/24/25 Unknown Cbd Gummies 1 dose PO DAILY PRN Pain 06/24/25 06/24/25 Unknown gabapentin 300 mg capsule 600 mg PO HS 06/24/25 06/24/25 Unknown valerian-passion 1 tab PO HS 06/24/25 06/24/25 Unknown fqjbw-vntidg-tzxofl-hops-orange 65 mg-65 mg-65 mg tab (Relax and Sleep) Past Medical History Medical History (Updated 07/02/25 @ 12:03 by Margie Yusuf PA-C) Acid reflux well controlled and stable no recent issues Aortic root dilatation Mild (4.2cm per cardio office visit 12/24/24) Atrial fibrillation dx'ed 2018 med controlled, no pacer on Eliquis BPH (benign prostatic hyperplasia) Cardiomyopathy Non ischemic CM (2014)- improved with medical therapy per cardio records EF 35-40% in 2014- EF improved to 55% per 07/[address] Bassett at [facility] in [place] Diabetes History of COVID-2019 - no residual symptoms HTN (hypertension) Hyperlipidemia Idiopathic polyneuropathy bilateral feet Nonobstructive atherosclerosis of coronary artery Per 2014 cardiac cath done for dyspnea and abnormal stress test. Osteoarthritis Sleep apnea cpap Tremor Occ to hands (very mild) Exercise / Class Metabolic Activity III < 4 Walking/Shop/Light housework (no chest pain or SOB with flat surface ambulation ) Past Family History Family History Brother Colon cancer Past Surgical History Surgical History History of cardiac cath 2014. Done for dyspnea and abnormal stress test. Showed minimal nonobstructive CAD, mild-mod LV dysfunction (EF 35-40%). History of cataract surgery bilat History of colonoscopy History of hernia surgery History of tonsillectomy History of tooth extraction History of total knee arthroplasty bilat Hx of rotator cuff surgery right Status post debridement of bone spur bilat heels Past Anesthesia History No Hx of Anesthesia Complications (with exception to PONV (mild) and insomnia post op (6-8 weeks)) and No Family Hx of Anesthesia Complications History of PONV No Hx of Motion Sickness and History of PONV (mild) Social History Smoking Status: Never smoker Do You Dip or Chew Tobacco: No Hx Alcohol Use: No Hx Substance Use: Yes substance use type: marijuana Substance Use Type Other:: cbd gummies prn > advised hold Review of Systems Patient denies chest pain, shortness of breath at rest, cough, wheezing, palpitations. No hx of seizures, stroke, ME. No hx of blood clots or blood transfusions Physical Exam Vital Signs VITALS BP 121/79 P 67 TEMP 97.7 SP02 96% RESP 16 Constitutional no acute distress ENMT Mouth: no TMJ clicking Thyromental Distance: > or= 3.5 Finger Breadths (4.0) Mallampati Class: II Full dentures on top and bottom Neck + limited neck extension (significant ) Respiratory normal respiratory effort; no respiratory distress Auscultation: lungs clear to auscultation bilaterally; no wheezes Cardiovascular Rate/Rhythm: regular rate and regular rhythm Heart Sounds: no murmur Vessels: no carotid bruit Heart sounds diminished throughout Musculoskeletal Spine: no pain with cervical ROM Extremities: extremities normal to inspection Psychiatric Orientation: alert Lab Results Anesthesia Preop Results Results Anesthesia Widget: WBC 6.76 K/ul (4.8-10.8) 07/02/25 Hgb 15.4 g/dl (14.0-18.0) 07/02/25 Hct 44.5 % (42.0-52.0) 07/02/25 Plt 208 K/uL (130-400) 07/02/25 Na 137 mmol/L (136-145) 07/02/25 K 4.0 mmol/L (3.5-5.1) 07/02/25 Cl 107 mmol/L (98-107) 07/02/25 CO2 23 mmol/L (21-32) 07/02/25 BUN 12 mg/dl (6-23) 07/02/25 Creat 0.97 mg/dl (0.6-1.4) 07/02/25 Glucose Level 90 mg/dl (70-99(Fasting)) 07/02/25 PT 10.6 Seconds (9.0-12.0) 07/02/25 PTT 34 Seconds (21-31) H 07/02/25 INR 1.0 (0.9-1.1) 07/02/25 HA1c 6.5 % (4.5-5.6) H 07/02/25 Blood Type A Positive 07/02/25 Antibody Screen NEGATIVE 07/02/25 Testing Laboratory Results Mildly elevated PTT (on Eliquis) Electrocardiogram Date: 07/02/25 Findings: + NSR @ (74bm ) RBBB LAFB Bifascicular block Minimal voltage criteria for LVH, may be normal variant (R in aVL) When compared to EKG from November 24, 2018- RBBB is now present per cardio Chest X-Ray Date: 07/02/25 Mild linear left basilar atelectasis/scarring with blunting of the posterior costophrenic angles.
[~2025-07-26 11:13] MED LIST changes: -ACETAMINOPHEN 500 MG TAB PO SCH; -BUPIVACAINE LIPOSOME/PF 266 MG, BUPIVACAINE/EPINEPHRINE 50 ML, SODIUM CHLORIDE 0.9% 30 ... INFIL SCH; -CEFAZOLIN 2000MG 2,000 MG/15 ML SYR IV SCH; -EPINEPHrine INJ 1 MG/ML AMP ONE; -FAMOTIDINE 20 MG TAB PO SCH; -GABAPENTIN 300 MG PO SCH; -LR 15ML/HR IV SCH; -METOCLOPRAMIDE HCL 10 MG TABLET PO SCH; -ROPIVACAINE 0.5% 5 MG/ML 30 ML VIAL ONE; +SODIUM CHLORIDE 0.9% PF INJ 10 ML VIAL ONE; -TRANEXAMIC ACID 1,000 MG **IV Intra-op IV SCH
[2025-07-26] MEDS ORDERED: MIDAZOLAM HCL 1 MG/ML 2ML VIAL ONE (11:39)
[2025-07-26] MEDS: LR 15ML/HR IV SCH (11:52)
[2025-07-26] MEDS: ACETAMINOPHEN 500 MG TAB PO SCH ×2 (11:53→17:24)
[2025-07-26] MEDS: GABAPENTIN 300 MG CAP PO SCH ×2 (11:53→20:40)
[2025-07-26] MEDS: FAMOTIDINE 20 MG TAB PO SCH (11:53)
[2025-07-26] MEDS: dexAMETHasone**PF** 10 MG/ML VIAL IV SCH (11:53)
[2025-07-26] MEDS ORDERED: PROPOFOL IV EMULSION 10 MG/ML 20 ML VIAL IV ONE (12:28)
[2025-07-26] MEDS ORDERED: LIDOCAINE 2% 20 MG/ML 5 ML SYR IV ONE (12:28)
[2025-07-26] MEDS ORDERED: ATROPINE SULFATE 0.1 MG/ML 10ML SYR IV PRN (13:24)
[2025-07-26] MEDS ORDERED: ONDANSETRON INJ 2 MG/ML 2 ML VIAL IV PRN ×2 (13:24→16:43)
[2025-07-26] MEDS ORDERED: KETOROLAC 30 MG/ML VIAL IV PRN (13:24)
[2025-07-26] MEDS: TRANEXAMIC ACID 1,000 MG **IV Pre-op IV SCH (13:25)
--- NOTE | 2025-07-26 13:28 | History & Physical Bridge Note ---
Date of Service July 26, 2025 History & Physical Bridge Note I have examined the patient, reviewed the History & Physical and in the interval since the performance of the History & Physical I have noted the following changes of clinical significance: no changes noted
[2025-07-26] MEDS: ceFAZolin 3000MG 3,000 MG/72.5 ML BAG IV SCH (13:38)
[2025-07-26] MEDS ORDERED: ROCURONIUM BROMIDE 10 MG/ML 5 ML VIAL IV ONE (13:39)
[2025-07-26] MEDS: LR 60ML/HR IV SCH (13:43)
[2025-07-26] MEDS: ORTHO JOINT ANESTHETIC ONE (14:26)
[2025-07-26] MEDS: ROPIV 0.5% 246mg, Ketorolac 30mg, EPINEPHrine 0.5mg in NSS INFIL SCH (14:26)
--- NOTE | 2025-07-26 14:37 | Operative Report ---
PG Post Operative Report Pre & Post Diagnosis Operation Date: 07/26/25 13:00 Pre-Op Diagnosis: Degenerative Joint Disease Shoulder Left Post-Op Diagnosis: Degenerative Joint Disease Shoulder Left I identified the patient and participated in the time-out.: Yes Procedure Operation Date: 07/26/25 13:00 Actual Procedures p Left Reverse Total Shoulder Arthroplasty(Left) - Madi Carvalho DO Surgeon Madi Carvalho DO Broach Setter Justen Moncada PA-C Estimated Blood Loss 150 Findings Consistent with Post-Op Diagnosis Specimens Left humeral head Description of Procedure Implants used: I used a Biomet Comprehensive reverse total shoulder arthroplasty system with a size 14 press fit micro humeral stem, a +3 offset humeral tray and a standard humeral bearing, a 25 mm small augment baseplate with a 6.5 mm central screw and superior and inferior locking screws, and a size 40 mm eccentric glenosphere. Jarvis arrived at [facility] for the above procedure. He was seen in the preoperative holding area and the operative extremity was identified and signed. He was given a preoperative antibiotic, TXA, and an interscalene nerve block. He was taken back to the operating room, laid on table in supine position, and put under general anesthesia. He was then put into the beachchair position. The shoulder was then prepped and draped in sterile fashion. A timeout was done and the patient and the operative extremity was properly identified. A deltopectoral approach was used. Dissection was taken down through the fascia and the deltoid was retracted laterally and the conjoined tendon was retracted medially. The anterior shoulder was exposed. The biceps tendon was torn. The subscapularis was then directly released off the lesser tuberosity with a peel technique. The inferior capsule was released and the humeral head was dislocated. A canal finding reamer was sent down the center of the humeral canal. Sequential reaming up to a size 14 reamer was done. Off that reamer, a proximal humeral resection guide was placed. The proximal humerus was resected at 135 of inclination and 25 of retroversion. Osteophytes were then removed and the glenoid was exposed. Time was spent doing a complete capsular and labral release. The glenoid guide was then placed in the inferior aspect of the glenoid. A 3.2 mm Steinmann pin was then placed into the glenoid vault at 10 of inclination. The glenoid baseplate was then reamed. The final size 25 mm small augment baseplate was then impacted in the place. A 6.5 mm central screw was then placed followed by superior and inferior locking screws. A 40 mm eccentric glenosphere was then impacted into place. Surrounding soft tissues were then injected with 100 cc an orthopedic pain control cocktail. The proximal humerus was then exposed. Sequential broaching of the humerus up to a size 14 broach was done. Off that broach a +3 offset humeral tray was trialed. The shoulder was then reduced, brought through a full range of motion, and felt to be stable. The shoulder was then dislocated and the broach was removed. The final size 14 micro press-fit humeral stem was then impacted into place. A standard humeral bearing was then snapped onto a +3 offset humeral tray. The humeral tray was then impacted onto the humeral stem. The shoulder was once again reduced, brought through a full range of motion, and felt to be stable. The subscapularis was poor quality and unable to be repaired.. A dilute betadyne lavage was then done for 3 minutes. The joint was then irrigated with normal saline solution. Hemostasis was obtained. The interval was closed with 2-0 Vicryl suture. The skin was then closed with 2-0 Vicryl and Lowry Zipline. A Silverlon dressing was placed and the arm was rested in a regular arm sling. He was then extubated and transferred to a hospital bed. He taken to the postanesthesia care unit in stable condition. He tolerated the procedure well. Justen Moncada PA-C, was present for the entire procedure. He was critical for patient positioning, prepping, draping, retraction exposure, wound closure and application of sterile dressing. I attest to the content of the Intraoperative Record and any orders documented therein. Any exceptions are noted below.
[2025-07-26] MEDS ORDERED: SUGAMMADEX SODIUM 200 MG/2 ML VIAL IV ONE (14:42)
--- NOTE | 2025-07-26 15:23 | XRay Report ---
XR shoulder LT min 2V routine CLINICAL HISTORY: Post shoulder surgery COMPARISON: None FINDINGS: Left shoulder prosthesis shows no hardware complication. There is expected soft tissue gas . IMPRESSION: Unremarkable postoperative exam. ACT 112: Negative or not required by law. Electronically signed by: Arvin Cuevas M.D. 07/26/2025 3:22 PM
--- NOTE | 2025-07-26 15:42 | Anesthesiology Progress Note ---
Date of Service July 26, 2025 Anesthesia Post Procedure Vital Signs Vital Signs: Temp Pulse Resp BP Pulse Ox O2 Del Method O2 Flow Rate 07/26/25 15:30 36.5 C 78 16 136/75 93 Room Air 07/26/25 15:20 78 16 126/91 95 Oxymask 5 07/26/25 15:10 80 17 132/76 95 Oxymask 5 07/26/25 15:03 36.0 C L 81 18 123/68 95 Oxymask 5 07/26/25 11:41 36.6 C 73 18 145/83 H 97 Room Air Transfer of Care Handoff Completed per policy Notes Mental Status: alert / awake / arousable Patient Amnestic to Procedure: Yes Nausea / Vomiting: adequately controlled Pain: adequately controlled Airway Patency, RR, SpO2: stable & adequate BP & HR: stable & adequate Hydration State: stable & adequate Anesthetic Complications: no major complications apparent
[2025-07-26] MEDS ORDERED: METOCLOPRAMIDE HCL INJ 5 MG/ML 2 ML VIAL IV PRN (16:43)
[2025-07-26] MEDS ORDERED: HYDROmorphone INJ 0.5 MG/0.5 ML SYR IV PRN (16:43)
[2025-07-26] MEDS ORDERED: MAGNESIUM HYDROXIDE SUSP 30 ML UDC PO PRN (16:43)
[2025-07-26] MEDS ORDERED: PHARMACY GLYCEMIC MGMT CONSULT PRN (16:43)
[2025-07-26] MEDS ORDERED: diphenhydrAMINE Capsule 25 MG CAP PO PRN (16:43)
[2025-07-26] MEDS ORDERED: NALOXONE HCL 0.4 MG/1 ML VIAL/CARP IV PRN (16:43)
[2025-07-26] MEDS: BUPIVACAINE LIPOSOME 1.3% 133 MG/10 ML VIAL ONE (17:02)
[2025-07-26] MEDS: SODIUM CHLORIDE 0.9% 1,000 ML IV SCH (17:24)
[2025-07-26] MEDS: KETOROLAC TROMETHAMINE 15 MG/ML VIAL IV SCH (17:25)
[2025-07-26] MEDS ORDERED: DEXTROSE 50% 50 ML SYRINGE IV PRN (17:30)
[2025-07-26] MEDS ORDERED: GLUCAGON FOR INJ 1 MG VIAL SQ PRN (17:30)
[2025-07-26] MEDS ORDERED: CARBOHYDRATES FOR HYPOGLYCEMIA PO PRN (17:30)
[2025-07-26] MEDS ORDERED: GLUCOSE 10 TAB/TUBE PO PRN (17:30)
[2025-07-26] MEDS ORDERED: GLUCOSE 40% GEL 15 GM TUBE PO PRN (17:30)
[2025-07-26] MEDS: SENNA 8.6 MG TAB PO SCH (20:38)
[2025-07-26] MEDS: DOCUSATE SODIUM 100 MG CAP PO SCH (20:39)
[2025-07-26] MEDS: INSULIN ASPART PER UNIT CHARGE SC SCH (20:39)
[2025-07-26] MEDS: EZETIMIBE 10 MG TAB PO SCH (20:40)
[2025-07-26] MEDS: TAMSULOSIN HCL 0.4 MG CAP PO SCH (20:40)
[2025-07-26] MEDS: DOFETILIDE 125 MCG CAPSULE PO SCH (20:41)
[2025-07-26] MEDS: APIXABAN 2.5 MG TAB PO SCH (20:41)
--- NOTE | 2025-07-27 08:03 | Orthopedic Progress Note ---
Date of Service July 27, 2025 Assessment & Plan (1) Status post reverse arthroplasty of left shoulder: Overall he is doing fairly well and happy with his progress. He is not having too much pain in the left shoulder. The preoperative cardiac clearance recommended a postoperative echocardiogram. The order was placed for postoperative echo. Cardiology was consulted to review the echo and to clear him for discharge to home. He does not have any cardiac symptoms. He will be seen by physical therapy today for ambulation and range of motion exercises. As long as he is cleared by the assistant to the director he can be discharged home today. Clyde Conley was seen and examined at bedside this morning. Overall is doing fairly well. He is not having much pain in the left shoulder. He was able to get some sleep last night. He has no complaints.. Review of Systems All systems reviewed & are unremarkable except as noted in HPI & below. Physical Exam On physical exam of the left shoulder, he is wearing his sling as instructed. The nerve block is still in effect. The dressing is clean and dry.. Results & Data Results & Data Laboratory Results . Diagnostic Findings Postoperative x-rays of the left shoulder show the prosthesis to be in anatomic alignment without any evidence of fracture, dislocation, or loosening.. . PG Care Time/CCT Total # of Minutes Spent Total Time Spent with Patient: Total time spent is greater than 50% in coordination of care (as documented) at patient's floor/unit and/or counseling patient: Coding Level of Care Code 04225 Post Operative Follow-Up Diagnoses Status post reverse arthroplasty of left shoulder Z96.612
[2025-07-27 08:19] VITALS: BP 110/71; PULSE 89; RESP 18; TEMP 97.7; O2SAT 93
[2025-07-27] MEDS: MULTIVITAMIN TAB PO SCH (08:21)
[2025-07-27] MEDS: METOPROLOL SUCC 25MG EXT REL TAB PO SCH (08:21)
[2025-07-27] MEDS: GABAPENTIN 300 MG CAP PO SCH (08:23)
[2025-07-27] MEDS: FINASTERIDE 5 MG TAB PO SCH (08:27)
--- NOTE | 2025-07-27 10:38 | XCELERA ---
[id number]
--- NOTE | 2025-07-27 12:02 | Cardiology Consultation ---
Date of Consultation July 27, 2025 Assessment & Plan (1) PAF (paroxysmal atrial fibrillation): -Tolerating rhythm control and long-term anticoagulation without difficulty. -Should be on Eliquis 5 mg twice daily for his atrial dysrhythmia. -Echocardiogram notes normal left ventricular systolic function with ejection fraction of 60 to 65%. Unchanged from study done July 04, 2025. -Stable for hospital discharge. (2) Hypertension: -Adequate control on current regimen. (3) Hyperlipidemia: -Continue rosuvastatin. (4) Status post reverse arthroplasty of left shoulder: -Management per Dr. Carvalho. -Stable for hospital discharge. History of Present Illness Attending Physician: Madi Carvalho DO History of Present Illness Mr. Jacobsen is an 84-year-old male who underwent a left total shoulder replacement yesterday with Dr. Carvalho. He does carry a cardiac history, therefore, this consultation was ordered to assist in his cardiac management. Of note, the patient typically follows with Dr. Bassett in [place], [place]. The patient carries a history of paroxysmal atrial fibrillation. He was originally treated with sotalol, however, had some breakthrough. Therefore, he was changed to dofetilide. He has tolerated that medication well and has had no recurrence of his atrial fibrillation. He has also been tolerating Eliquis 5 mg twice daily without difficulty. He did have an echocardiogram performed on July 04 which noted normal left ventricular systolic function with an ejection fraction of 60 to 65%. There is prior septal thickening and aortic valve sclerosis. The aortic root measured 3.9 cm in diameter and the ascending thoracic aorta measured 4.1 cm in diameter. These dimensions were unchanged from a prior study. The patient underwent left, reverse total shoulder replacement yesterday. His procedure was uneventful. Currently, he is resting comfortably in the bedside chair without complaints. He is anxious for hospital discharge. Past medical and surgical history 1. Hypertension 2. Hypercholesterolemia 3. Paroxysmal atrial fibrillationsee above 4. Resolved, nonischemic cardiomyopathy 5. Dilated ascending thoracic aorta 6. Moderate mitral digitation 7. Diabetes 8. Diabetic neuropathy 9. Obesity 10. Obstructive sleep apnea Social history lives with his No tobacco or alcohol Family history Noncontributory Review of system A 10 point review of system was undertaken and negative except as scribed above. Allergies Allergy/AdvReac Type Severity Reaction Status Date / Time latex Allergy Intermediate rash/sore Verified 06/24/25 13:38 at site Home Medications Medication Instructions Recorded Confirmed Type apixaban 5 mg tablet (Eliquis) 5 mg PO BID 05/21/25 07/26/25 History ascorbic acid (vitamin C) 1,000 mg 1,000 mg PO PM 05/21/25 07/26/25 History capsule cholecalciferol (vitamin D3) 125 125 mcg PO PM 05/21/25 07/26/25 History mcg (5,000 unit) capsule coQ10 (ubiquinol) 100 mg capsule 100 mg PO PM 05/21/25 07/26/25 History (Qunol Gurjit CoQ10) dofetilide 250 mcg capsule 250 mcg PO BID 05/21/25 07/26/25 History ezetimibe 10 mg tablet 10 mg PO PM 05/21/25 07/26/25 History finasteride 5 mg tablet 5 mg PO QAM 05/21/25 07/26/25 History gabapentin 300 mg capsule 300 mg PO QAM 05/21/25 07/26/25 History glimepiride 2 mg tablet 2 mg PO QAM 05/21/25 07/26/25 History magnesium glycinate 200 mg PO HS 05/21/25 07/26/25 History metoprolol succinate 25 mg 25 mg PO QAM 05/21/25 07/26/25 History tablet,extended release 24 hr mupirocin 2 % topical ointment 1 applic topical BID 05/21/25 07/26/25 History rosuvastatin 10 mg tablet 10 mg PO .tuesday and 05/21/25 07/26/25 Hist ory semaglutide 2 mg/dose (8 mg/3 mL) 2 mg subcut .weekly 05/21/25 07/26/25 History subcutaneous pen injector (Ozempic) tamsulosin 0.4 mg capsule 0.4 mg PO HS 05/21/25 07/26/25 History zinc gluconate 50 mg tablet 50 mg PO QAM 05/21/25 07/26/25 History Cbd Gummies 1 dose PO DAILY PRN Pain 06/24/25 07/26/25 History gabapentin 300 mg capsule 600 mg PO HS 06/24/25 07/26/25 History valerian-passion 1 tab PO HS 06/24/25 07/26/25 History zxcun-gtfagb-hwpwyk-hops-orange 65 mg-65 mg-65 mg tab (Relax and Sleep) cefadroxil 500 mg capsule 500 mg PO BID 10 days #20 caps 07/26/25 07/26/25 Rx oxycodone 5 mg tablet 5 mg PO Q4H PRN pain #18 tabs 07/26/25 07/26/25 Rx Patient History Medical History (Updated 07/27/25 @ 12:09 by Barrett Nieto MD) Aortic root dilatation Mild (4.2cm per cardio office visit 12/24/24) Nonobstructive atherosclerosis of coronary artery Per 2014 cardiac cath done for dyspnea and abnormal stress test. BPH (benign prostatic hyperplasia) Diabetes Cardiomyopathy Non ischemic CM (2014)- improved with medical therapy per cardio records EF 35-40% in 2014- EF improved to 55% per 07/[address] Bassett at [facility] in [place] Acid reflux well controlled and stable no recent issues Atrial fibrillation dx'ed 2018 med controlled, no pacer on Eliquis Idiopathic polyneuropathy bilateral feet Tremor Occ to hands (very mild) History of COVID-2019 - no residual symptoms Hyperlipidemia HTN (hypertension) Sleep apnea cpap Osteoarthritis Surgical History (Updated 07/26/25 @ 10:16 by John Moncada PA-C) History of cataract surgery bilat History of tooth extraction Status post debridement of bone spur bilat heels History of cardiac cath 2014. Done for dyspnea and abnormal stress test. Showed minimal nonobstructive CAD, mild-mod LV dysfunction (EF 35-40%). History of tonsillectomy History of colonoscopy Hx of rotator cuff surgery right History of hernia surgery History of total knee arthroplasty bilat Family History Brother Colon cancer Social History Smoking Status: Never smoker Second Hand Exposure: No; Do You Dip or Chew Tobacco: No; Tobacco Cessation Education Requested by Patient: No Hx Alcohol Use: No Hx Substance Use: Yes Substance Use Type Other:: cbd gummies prn > advised hold Preferred Language: [place] Communication Ability: Effective Communication Ability Comment: slight hard of hearing - hearing aides Visual Impairment: Limited Hearing Ability: Hard of Hearing Radiographer Cardiac Catheterization Required: No Beliefs That Will Affect Care: None marital status: Current Living Situation: Spouse current occupational status: retired Other Information That Helps Us Care for You: No Feels Safe at Home: Yes Safety Concerns: Feels Safe At This Time Assistive Devices: Cane, CPAP, Denture - Upper, Denture - Lower, Glasses and Hearing Aid - Bilateral Physical Exam Physical Exam: In general this is an obese white male in no acute distress. HEENT exam is negative. Neck reveals normal carotid upstrokes without bruits. Jugular venous pressure is flat at 90. There is no thyromegaly. Cardiovascular exam reveals a regular rhythm with a normal S1 and S2. No S3, S4, or murmurs are noted. Lungs are clear without rales, rhonchi, or wheezes. Abdomen is soft without bruits. Extremities reveal intact radial artery pulses bilaterally. There is no peripheral edema. Left upper extremity is in a sling. Results & Data Vital Signs (Past 12 Hours) Vital Signs Temp Pulse Resp BP Pulse Ox O2 Del Method 07/27/25 08:18 36.5 C 89 18 110/71 93 Room Air 07/27/25 03:30 36.8 C 94 H 16 115/72 92 Room Air PG Care Time/CCT Total # of Minutes Spent Total Time Spent with Patient: Total time spent is greater than 50% in coordination of care (as documented) at patient's floor/unit and/or counseling patient: Coding Level of Care Code 34068 INT INP/OBS CARE 3/75MIN Diagnoses PAF (paroxysmal atrial fibrillation) I48.0 Hypertension I10 Hyperlipidemia E78.5 Status post reverse arthroplasty of left shoulder Z96.612
[2025-07-28] MEDS ORDERED: ROSUVASTATIN CALCIUM 10 MG TAB PO SCH (09:00)
== END 2025-07-27 12:20 | disposition home or self-care (01) ==
LOC: ASU 11:13 → 3E 11:13